=== PATIENT | female | born 1975 | race Caucasian/White ===

== ENCOUNTER 2017-12-19 08:54 | Emergency (ER) | payer MEDICAID ==
[~2017-12-19] VITALS: Ht 160 cm; Wt 89.0 kg
[~2017-12-19 08:54] MED LIST: ALBU6.7H INH; AMOX-419 PO; BENZ-16 PO; GUAI118S13 PO; GUAI120015 PO; NO HOME MEDS; ONDA4TAB6 PO; PSEU-259 PO
[2017-12-19] MEDS ORDERED: ONDA4TAB12 PO (09:23)
[2017-12-19] MEDS ORDERED: GUAI1TBM19 PO (09:23)
[2017-12-19] MEDS ORDERED: BENZ-16 PO (09:23)
[2017-12-19] MEDS ORDERED: AFRIN NS (09:23)
[2017-12-19 10:23] VITALS: BP 155/89
== END 2017-12-19 10:25 | disposition home or self-care (01) ==
LOC: ER 08:54
DX: J22 Unspecified acute lower respiratory infection (principal); J45.909 Unspecified asthma, uncomplicated; Z98.890 Other specified postprocedural states; Z79.899 Other long term (current) drug therapy
CPT/HCPCS: 99283

== ENCOUNTER 2017-12-26 08:06 | Emergency (ER) | payer MEDICAID ==
[~2017-12-26] VITALS: Ht 142.2 cm; Wt 86.6 kg
[~2017-12-26 08:06] MED LIST changes: +AFRIN NS; +GUAI1TBM19 PO; +ONDA4TAB12 PO
[2017-12-26 08:43] LABS: BASOPHILS % (AUTO) 0.4 % (0-1); EOSINOPHILS # (AUTO) 0.2 X10'3 (0-0.9); EOSINOPHILS % (AUTO) 3.7 % (0-6); HEMATOCRIT 39.1 % (35.0-45.0); HEMOGLOBIN 13.7 g/dl (12.0-16.0); LYMPHOCYTES # (AUTO) 2.3 X10'3 (1.1-4.8); LYMPHOCYTES % (AUTO) 42.9 % (21-51); MEAN CORPUSCULAR HEMOGLOBIN 29.2 PG (27.0-31.0); MEAN CORPUSCULAR VOLUME 83.5 FL (78-98); MEAN PLATELET VOLUME 9.3 FL (7.4-10.4); MONOCYTES # (AUTO) 0.4 X10'3 (0-0.9); MONOCYTES % (AUTO) 7.8 % (2-12); NEUTROPHILS # (AUTO) 2.4 X10'3 (1.8-7.7); NEUTROPHILS % (AUTO) 45.2 % (42-75); PLATELET COUNT 184 X10'3 (140-440); RED BLOOD COUNT 4.68 X10'6 (4.20-5.60); RED CELL DISTRIBUTION WIDTH 14.1 % (11.5-14.5); WHITE BLOOD COUNT 5.3 X10'3 (4.5-11.0)
[2017-12-26 08:57] LABS: ALANINE AMINOTRANSFERASE 21 U/L (12-78); ALBUMIN 3.9 G/DL (3.4-5.0); ALKALINE PHOSPHATASE 57 IU/L (46-116); ANION GAP 10 (8-16); ASPARTATE AMINO TRANSFERASE 17 U/L (10-37); BILIRUBIN,TOTAL 0.4 MG/DL (0.1-1.0); BLOOD UREA NITROGEN 13 MG/DL (7-18); BUN/CREATININE RATIO 15.5 (6.6-38.0); CALCIUM 8.3 MG/DL (8.5-10.1); CHLORIDE 106 MMOL/L (99-107); CREATININE 0.84 MG/DL (0.40-0.90); GLUCOSE 91 MG/DL (70-104); POTASSIUM 4.1 MMOL/L (3.5-5.1); SODIUM 141 MMOL/L (135-145); TOTAL CARBON DIOXIDE 25.3 MMOL/L (24-32); TOTAL PROTEIN 7.7 G/DL (6.4-8.2); eGFR 75 ML/MIN
[2017-12-26] MEDS ORDERED: AZIT250T PO (09:01)
[2017-12-26 09:08] LABS: CLARITY,URINE CLOUDY (Clear); COLOR,URINE YELLOW (Yellow); GLUCOSE, URINE NEGATIVE (Neg); KETONES,URINE NEGATIVE (Neg); LEUKOCYTE ESTERASE ,URINE NEGATIVE (Neg); NITRITES, URINE NEGATIVE (Neg); OCCULT BLOOD,URINE LARGE (Neg); PH,URINE 5.5 (4.8-8.0); PROTEIN,URINE NEGATIVE (Neg); UROBILINOGEN,URINE 0.2 E.U/dL (0.2-1.0)
[2017-12-26 09:09] LABS: UA COLLECTION TYPE STRAIGHT CATH
[2017-12-26 09:12] LABS: MUCUS STRANDS MANY /LPF (Neg); SQUAMOUS EPITHELIAL CELL,UR MANY /LPF (FEW); TRANSITIONAL EPI CELLS,URINE FEW /HPF
[2017-12-26 09:14] LABS: BACTERIA,URINE 2+ /HPF (Neg)
[2017-12-26 09:31] VITALS: BP 111/72
[2017-12-26] MEDS ORDERED: CEPH-572 PO (09:31)
== END 2017-12-26 09:38 | disposition home or self-care (01) ==
LOC: ER 08:06
DX: J20.9 Acute bronchitis, unspecified (principal); N39.0 Urinary tract infection, site not specified; J45.909 Unspecified asthma, uncomplicated; Z89.429 Acquired absence of other toe(s), unspecified side; Z79.899 Other long term (current) drug therapy
CPT/HCPCS: 36415; 71046; 80053; 81001; 85025; 87088; 93005; 99285

== ENCOUNTER 2019-07-14 07:40 | Emergency (ER) | payer MEDICAID ==
[~2019-07-14] VITALS: Ht 142.2 cm; Wt 86.8 kg
[~2019-07-14 07:40] MED LIST changes: -AFRIN NS; -ALBU6.7H INH; +ALBU6.7H9 INH; +AZIT250T PO; +METH4TAB3 PO
[2019-07-14 07:44] VITALS: BP 148/73
[2019-07-14] MEDS ORDERED: dexamethasone 0.5 mg/5ml unit-dose oral solution PO STA (08:01)
[2019-07-14] MEDS ORDERED: AMOX500C2 PO (08:02)
[2019-07-14] MEDS ORDERED: dexamethasone sod phosphate 10mg/ml inj PO STA (08:04)
== END 2019-07-14 08:10 | disposition home or self-care (01) ==
LOC: ER 07:40
DX: J02.9 Acute pharyngitis, unspecified (principal); J45.909 Unspecified asthma, uncomplicated; Z98.890 Other specified postprocedural states; Z79.899 Other long term (current) drug therapy
CPT/HCPCS: 99283; J1100; J8540

== ENCOUNTER 2020-04-13 20:25 | Emergency (ER) | payer MEDICAID ==
[~2020-04-13] VITALS: Ht 142.2 cm; Wt 74.0 kg
[2020-04-13] MEDS ORDERED: normal saline 1000ML IV soln IVB ONE ×2 (20:40→23:15)
[2020-04-13 22:03] LABS: BASOPHILS % (AUTO) 0.4 % (0-1); EOSINOPHILS # (AUTO) 0.1 X10'3 (0-0.9); EOSINOPHILS % (AUTO) 2.2 % (0-6); HEMOGLOBIN 13.8 g/dl (12.0-16.0); LYMPHOCYTES # (AUTO) 1.8 X10'3 (1.1-4.8); LYMPHOCYTES % (AUTO) 27.1 % (21-51); MEAN CORPUSCULAR HEMOGLOBIN 29.6 PG (27.0-31.0); MEAN CORPUSCULAR HGB CONC 33.7 g/dL (33.0-36.5); MEAN CORPUSCULAR VOLUME 87.8 FL (78-98); MEAN PLATELET VOLUME 9.8 FL (7.4-10.4); MONOCYTES # (AUTO) 0.6 X10'3 (0-0.9); MONOCYTES % (AUTO) 8.4 % (2-12); NEUTROPHILS # (AUTO) 4.2 X10'3 (1.8-7.7); NEUTROPHILS % (AUTO) 61.9 % (42-75); PLATELET COUNT 183 X10'3 (140-440); RED BLOOD COUNT 4.67 X10'6 (4.20-5.60); RED CELL DISTRIBUTION WIDTH 14.4 % (11.5-14.5); WHITE BLOOD COUNT 6.7 X10'3 (4.5-11.0)
[2020-04-13 22:14] LABS: ALANINE AMINOTRANSFERASE 19 U/L (12-78); ALBUMIN 4.1 G/DL (3.4-5.0); ALBUMIN/GLOBULIN RATIO 1.1 (1.1-1.5); ALKALINE PHOSPHATASE 51 IU/L (46-116); ANION GAP 7 (8-16); ASPARTATE AMINO TRANSFERASE 17 U/L (10-37); BILIRUBIN,TOTAL 0.4 MG/DL (0.1-1.0); BLOOD UREA NITROGEN 11 MG/DL (7-18); BUN/CREATININE RATIO 13.9 (6.6-38.0); CHLORIDE 105 MMOL/L (99-107); CREATININE 0.79 MG/DL (0.40-0.90); ETHANOL < 0.010 GM/DL (0.0-0.010); GLUCOSE 106 MG/DL (70-104); POTASSIUM 3.9 MMOL/L (3.5-5.1); SODIUM 139 MMOL/L (135-145); TOTAL CARBON DIOXIDE 27.4 MMOL/L (24-32); TOTAL PROTEIN 7.7 G/DL (6.4-8.2); eGFR 80 ML/MIN
[2020-04-13] MEDS ORDERED: dexamethasone sod phosphate 10mg/ml inj IV STA (23:13)
[2020-04-13] MEDS ORDERED: ketorolac trometh. 30mg/ml inj. IV ONE (23:15)
[2020-04-13] MEDS ORDERED: LORazepam 2 mg/ml vial IV ONE (23:15)
[2020-04-13] MEDS ORDERED: ondansetron/PF 4mg/2ml inj IV ONE (23:15)
[2020-04-14 00:11] VITALS: BP 153/76
[2020-04-14 00:31] LABS: CLARITY,URINE CLEAR (Clear); COLOR,URINE YELLOW (Yellow); GLUCOSE, URINE NEGATIVE (Neg); KETONES,URINE TRACE mg/dl (Neg); LEUKOCYTE ESTERASE ,URINE NEGATIVE (Neg); NITRITES, URINE NEGATIVE (Neg); OCCULT BLOOD,URINE TRACE-INTACT (Neg); PROTEIN,URINE NEGATIVE (Neg); UA COLLECTION TYPE CLN CATCH MIDSTREAM; URINE HCG NEGATIVE (NEG); UROBILINOGEN,URINE 0.2 E.U/dL (0.2-1.0)
[2020-04-14 00:37] LABS: BACTERIA,URINE NONE SEEN /HPF (Neg); RBC,URINE 0-2 /HPF (0-2); SQUAMOUS EPITHELIAL CELL,UR FEW /LPF (FEW); WBC,URINE NONE SEEN /HPF (0-4)
--- NOTE | 2020-04-14 00:40 | NUR ---
Had pt weight a little bit for discharge. She was a little unsteady on her feet. [employer] [facility] WNL
[2020-04-14 00:44] LABS: URINE AMPHETAMINE SCREEN NEGATIVE (Neg); URINE BARBITUATE SCREEN NEGATIVE (Neg); URINE BENZODIAZEPINES SCREEN NEGATIVE (Neg); URINE CANNABINOID SCREEN NEGATIVE (Neg); URINE COCAINE SCREEN NEGATIVE (Neg); URINE METHADONE SCREEN NEGATIVE (Neg); URINE OPIATE SCREEN NEGATIVE (Neg); URINE PHENCYCLIDINE SCREEN NEGATIVE (Neg)
--- NOTE | 2020-04-14 01:06 | NUR ---
pt states she is feeling better BP 148/92 HR 80
== END 2020-04-14 01:08 | disposition home or self-care (01) ==
LOC: ER 20:27
DX: R51 Headache (principal); R41.0 Disorientation, unspecified; J45.909 Unspecified asthma, uncomplicated; Z98.890 Other specified postprocedural states; Z79.2 Long term (current) use of antibiotics; Z79.899 Other long term (current) drug therapy
CPT/HCPCS: 36415; 70450; 80053; 80305; 80320; 81001; 81025; 82140; 85025; 93005; 96361; 96374; 96375; 99285; J1100; J1885; J2060; J2405; J7030

== ENCOUNTER 2020-08-05 09:59 | Outpatient (CLI) | payer MEDICAID | END 2020-08-05 23:59 | disposition home or self-care (01) | LOC: RAD 09:59 | DX: G40.909 Epilepsy, unspecified, not intractable, without status epilepticus (principal) | CPT/HCPCS: 95819 ==

== ENCOUNTER 2021-03-28 22:54 | Emergency (ER) | payer MEDICAID ==
[~2021-03-28] VITALS: Ht 142.2 cm; Wt 68.2 kg
[2021-03-29 00:50] VITALS: BP 140/88
== END 2021-03-29 00:53 | disposition home or self-care (01) ==
LOC: ER 22:55
DX: R00.2 Palpitations (principal); R05 Cough; J45.909 Unspecified asthma, uncomplicated; Z87.01 Personal history of pneumonia (recurrent); Z98.890 Other specified postprocedural states; Z79.899 Other long term (current) drug therapy; Z79.2 Long term (current) use of antibiotics
CPT/HCPCS: 99283

== ENCOUNTER 2024-12-11 00:28 | Emergency (ER) | payer MEDICAID ==
[~2024-12-11] VITALS: Ht 142.2 cm; Wt 89.9 kg
[~2024-12-11 00:28] MED LIST changes: +ALBU6.7H14 INH; -ALBU6.7H9 INH; +ONDA-243 PO; -ONDA4TAB12 PO
[2024-12-11 00:35] VITALS: BP 149/104; PULSE 103; RESP 18; O2SAT 96
[2024-12-11] MEDS ORDERED: rifampin 300mg capsule PO SCH (02:40)
[2024-12-11 03:00] LABS: BASOPHILS # (AUTO) 0.1 X10'3 (0-0.2); BASOPHILS % (AUTO) 0.8 % (0-1); EOSINOPHILS # (AUTO) 0.2 X10'3 (0-0.9); EOSINOPHILS % (AUTO) 2.3 % (0-6); HEMATOCRIT 39.7 % (35.0-45.0); HEMOGLOBIN 13.7 g/dl (12.0-16.0); LYMPHOCYTES # (AUTO) 1.9 X10'3 (1.1-4.8); LYMPHOCYTES % (AUTO) 27.1 % (21-51); MEAN CORPUSCULAR HEMOGLOBIN 29.9 PG (27.0-31.0); MEAN CORPUSCULAR HGB CONC 34.5 g/dL (33.0-36.5); MEAN CORPUSCULAR VOLUME 86.8 FL (78-98); MEAN PLATELET VOLUME 9.5 FL (7.4-10.4); MONOCYTES # (AUTO) 0.5 X10'3 (0-0.9); MONOCYTES % (AUTO) 6.6 % (2-12); NEUTROPHILS # (AUTO) 4.5 X10'3 (1.8-7.7); NEUTROPHILS % (AUTO) 63.2 % (42-75); PLATELET COUNT 221 X10'3 (140-440); RED BLOOD COUNT 4.57 X10'6 (4.20-5.60); RED CELL DISTRIBUTION WIDTH 13.8 % (11.5-14.5); WHITE BLOOD COUNT 7.2 X10'3 (4.5-11.0)
[2024-12-11 03:10] LABS: ANION GAP 6 (8-16); BLOOD UREA NITROGEN 11 MG/DL (7-18); CALCIUM 8.6 MG/DL (8.5-10.1); CHLORIDE 102 MMOL/L (99-107); CREATININE 0.61 MG/DL (0.40-0.90); GLUCOSE 93 MG/DL (70-104); MAGNESIUM 1.7 MG/DL (1.5-2.4); POTASSIUM 4.1 MMOL/L (3.5-5.1); SODIUM 136 MMOL/L (135-145); TOTAL CARBON DIOXIDE 27.9 MMOL/L (24-32); eCRCL 66 ML/MIN; eGFR > 90 ML/MIN
[2024-12-11 03:11] LABS: ALBUMIN 3.9 G/DL (3.4-5.0)
[2024-12-11] MEDS: rifampin 300mg capsule PO ONE (03:19)
[2024-12-11] MEDS ORDERED: RIFA300C65 PO (03:25)
[2024-12-11] MEDS ORDERED: SULF1TAB48 PO (03:25)
[2024-12-11] MEDS: vancomycin/NS 1 GM ADD-VANTAGE 250 ML IV ONE (03:32)
[2024-12-11] MEDS: sulfamethoxazole/trimethoprim DS (800/160mg) tablet PO ONE (03:46)
[2024-12-11 03:50] LABS: HIV ANTIBODY 1&2 RAPID NON-REACTIVE (Neg)
[2024-12-11] MEDS: diphenhydrAMINE 25mg capsule PO ONE (05:30)
[2024-12-11 05:37] VITALS: TEMP 98.6
== END 2024-12-11 05:38 | disposition home or self-care (01) ==
LOC: ER 00:28
DX: L03.114 Cellulitis of left upper limb (principal); N61.0 Mastitis without abscess; L02.412 Cutaneous abscess of left axilla; J45.909 Unspecified asthma, uncomplicated; Z79.899 Other long term (current) drug therapy; Z98.890 Other specified postprocedural states
CPT/HCPCS: 36415; 80048; 83605; 83735; 84145; 85025; 86703; 87040; 87077; 96365; 99284; J3370; Q0163

== ENCOUNTER 2024-12-23 21:15 | Emergency (ER) | payer MEDICAID ==
[~2024-12-23] VITALS: Ht 142.2 cm; Wt 100.7 kg
[~2024-12-23 21:15] MED LIST changes: +RIFA300C65 PO
[2024-12-23 21:37] VITALS: BP 132/107; PULSE 63; O2SAT 99
[2024-12-23 22:19] LABS: ALANINE AMINOTRANSFERASE 42 U/L (12-78); ALBUMIN 3.9 G/DL (3.4-5.0); ALBUMIN/GLOBULIN RATIO 0.9 (1.1-1.5); ALKALINE PHOSPHATASE 89 IU/L (46-116); ANION GAP 9 (8-16); ASPARTATE AMINO TRANSFERASE 18 U/L (10-37); BILIRUBIN,TOTAL 0.2 MG/DL (0.1-1.0); BLOOD UREA NITROGEN 17 MG/DL (7-18); BUN/CREATININE RATIO 28.3 (10.0-20.0); CALCIUM 8.4 MG/DL (8.5-10.1); CHLORIDE 103 MMOL/L (99-107); GLUCOSE 121 MG/DL (70-104); POTASSIUM 4.1 MMOL/L (3.5-5.1); SODIUM 139 MMOL/L (135-145); TOTAL CARBON DIOXIDE 27.4 MMOL/L (24-32); TOTAL PROTEIN 8.3 G/DL (6.4-8.2); eCRCL 66 ML/MIN; eGFR > 90 ML/MIN
[2024-12-23 22:21] LABS: BASOPHILS # (AUTO) 0.1 X10'3 (0-0.2); BASOPHILS % (AUTO) 0.7 % (0-1); EOSINOPHILS # (AUTO) 0.3 X10'3 (0-0.9); EOSINOPHILS % (AUTO) 3.2 % (0-6); HEMATOCRIT 39.2 % (35.0-45.0); HEMOGLOBIN 13.5 g/dl (12.0-16.0); LYMPHOCYTES # (AUTO) 3.5 X10'3 (1.1-4.8); LYMPHOCYTES % (AUTO) 40.4 % (21-51); MEAN CORPUSCULAR HEMOGLOBIN 29.6 PG (27.0-31.0); MEAN CORPUSCULAR HGB CONC 34.3 g/dL (33.0-36.5); MEAN CORPUSCULAR VOLUME 86.2 FL (78-98); MEAN PLATELET VOLUME 9.1 FL (7.4-10.4); MONOCYTES # (AUTO) 0.6 X10'3 (0-0.9); MONOCYTES % (AUTO) 6.9 % (2-12); NEUTROPHILS # (AUTO) 4.2 X10'3 (1.8-7.7); NEUTROPHILS % (AUTO) 48.8 % (42-75); PLATELET COUNT 239 X10'3 (140-440); RED BLOOD COUNT 4.54 X10'6 (4.20-5.60); RED CELL DISTRIBUTION WIDTH 13.8 % (11.5-14.5); WHITE BLOOD COUNT 8.6 X10'3 (4.5-11.0)
[2024-12-23 22:27] LABS: PRO BRAIN NATRIURETIC PEPTIDE 36 PG/ML (0-125)
[2024-12-24 00:04] VITALS: RESP 20
[2024-12-24] MEDS ORDERED: BENZ-38 PO (00:36)
[2024-12-24 00:39] VITALS: TEMP 97.9
[2024-12-24] MEDS: benzonatate 100mg capsule PO ONE (00:46)
== END 2024-12-24 00:51 | disposition home or self-care (01) ==
LOC: ER 21:15
DX: J06.9 Acute upper respiratory infection, unspecified (principal); J45.909 Unspecified asthma, uncomplicated; Z98.890 Other specified postprocedural states
CPT/HCPCS: 36415; 71045; 80053; 83880; 84484; 85025; 93005; 99285